=== PATIENT | female | born 1995 | race Caucasian/White ===

== ENCOUNTER 2016-11-14 16:14 | Emergency (ER) | payer BC ==
[~2016-11-14] VITALS: Ht 170.2 cm; Wt 81.6 kg
[2016-11-14 16:22] VITALS: BP 125/85; PULSE 92; RESP 16; TEMP 97.6; O2SAT 97
[2016-11-14 17:18] LABS: BILIRUBIN,URINE NEGATIVE (NEGATIVE); BLOOD, URINE NEGATIVE (NEGATIVE); CLARITY/URINE CLEAR (CLEAR); COLOR,URINE YELLOW (YELLOW); GLUCOSE,URINE NEGATIVE (NEGATIVE); KETONES,URINE NEGATIVE (NEGATIVE); LEUKOCYTE ESTERASE ,URINE NEGATIVE (NEGATIVE); NITRITE, URINE NEGATIVE (NEGATIVE); PROTEIN URINE NEGATIVE (NEGATIVE); UROBILINOGEN,URINE 0.2 (0.2-1.0)
[2016-11-14] MEDS ORDERED: NACL 0.9% 1,000 ML IV ONE (17:30)
[2016-11-14] MEDS ORDERED: KETOROLAC TROMETHAMINE 30 MG VIAL IVP ONE (17:30)
[2016-11-14] MEDS ORDERED: METOCLOPRAMIDE HCL 10 MG/2 ML VIAL IVP ONE (17:30)
[2016-11-14 17:35] LABS: BASOPHILS % (AUTO) 0.5 % (0.0-2.0); EOSINOPHILS % (AUTO) 0.4 % (0.0-4.0); HEMATOCRIT 45.2 % (36-48); HEMOGLOBIN 14.9 g/dL (12.0-16.0); LYMPHOCYTES # (AUTO) 1.5 K/uL (1.0-5.5); MEAN CORPUSCULAR HEMOGLOBIN 30 pg (27-31); MEAN CORPUSCULAR HGB CONC 33 % (32-36); MEAN CORPUSCULAR VOLUME 91 fL (79.0-98.0); MONOCYTES # (AUTO) 0.4 K/uL (0.0-1.0); MONOCYTES % (AUTO) 5.8 % (1.7-9.3); NEUTROPHILS # (AUTO) 4.7 K/uL (1.8-7.7); NEUTROPHILS % (AUTO) 71.3 % (40.0-70.0); PLATELET COUNT (AUTO) 193 K/uL (130-430); RED BLOOD CELL COUNT(AUTO) 4.97 MIL/uL (4.2-6.2); RED CELL DISTRIBUTION WIDTH 12.9 % (9.0-15.0); WHITE BLOOD COUNT (AUTO) 6.6 K/uL (4.5-11.0)
[2016-11-14 17:45] LABS: CALCIUM 9.5 mg/dL (8.4-11.0); CREATININE 0.72 mg/dL (0.55-1.30); POTASSIUM 3.9 mmol/L (3.5-5.1)
[2016-11-14 17:50] LABS: ALBUMIN 3.8 g/dL (3.4-4.8); TOTAL BILIRUBIN 0.3 mg/dL (0.0-1.0)
[2016-11-14 18:14] VITALS: BP 120/79; PULSE 84; RESP 16; TEMP 98.1; O2SAT 97
== END 2016-11-14 18:14 | disposition home or self-care (01) ==
LOC: SED 16:14
DX: J06.9 Acute upper respiratory infection, unspecified (principal); R51 Headache
CPT/HCPCS: 36415; 70450; 80053; 81003; 81025; 85025; 86308; 86710; 96361; 96374; 96375; 99285; J1885; J2765; J7030

== ENCOUNTER 2018-08-24 15:47 | Emergency (ER) | payer BC ==
[~2018-08-24] VITALS: Ht 170.2 cm; Wt 82.1 kg
[2018-08-24 15:51] VITALS: BP_SYST 123
[2018-08-24 16:24] VITALS: BP_SYST 123
== END 2018-08-24 16:25 | disposition home or self-care (01) ==
LOC: SED 15:47
DX: N94.0 Mittelschmerz (principal)
CPT/HCPCS: 81002; 81025; 99282

== ENCOUNTER 2018-11-05 11:33 | Emergency (ER) | payer BC ==
[~2018-11-05] VITALS: Ht 172.7 cm; Wt 79.4 kg
[2018-11-05 11:40] VITALS: BP_SYST 107
[2018-11-05] MEDS ORDERED: NACL 0.9% 1,000 ML IV ONE (12:00)
[2018-11-05 12:16] LABS: HEMATOCRIT 46.2 % (36-48); HEMOGLOBIN 15.2 g/dL (12.0-16.0); MEAN CORPUSCULAR HEMOGLOBIN 30 pg (27-31); MEAN CORPUSCULAR HGB CONC 33 % (32-36); MEAN CORPUSCULAR VOLUME 91 fL (79.0-98.0); PLATELET COUNT (AUTO) 188 K/uL (130-430); RED BLOOD CELL COUNT(AUTO) 5.07 MIL/uL (4.2-6.2); RED CELL DISTRIBUTION WIDTH 14.1 % (9.0-15.0)
[2018-11-05 12:29] LABS: WHITE BLOOD COUNT (AUTO) 11.4 K/uL (4.8-10.8)
[2018-11-05 12:30] LABS: CALCIUM 9.2 mg/dL (8.4-11.0); CREATININE 0.76 mg/dL (0.55-1.30)
[2018-11-05 12:34] LABS: ALBUMIN 3.4 g/dL (3.4-4.8); TOTAL BILIRUBIN 0.6 mg/dL (0.0-1.0)
[2018-11-05] MEDS ORDERED: IOHEXOL 100 ML IV ONE (12:43)
[2018-11-05 13:20] LABS: ATYPICAL LYMPHOCYTES % 40 % (0-0); BAND % (MANUAL) 0 % (0-6); LYMPHOCYTES % (MANUAL) 33 % (20-46); MONOCYTES % (MANUAL) 15 % (0-11)
[2018-11-05 13:28] LABS: BASOPHILS % (MANUAL) 0 % (0-2); EOSINOPHILS % (MANUAL) 0 % (0-7)
[2018-11-05 14:34] VITALS: BP_SYST 110
== END 2018-11-05 14:35 | disposition home or self-care (01) ==
LOC: SED 11:33
DX: R10.9 Unspecified abdominal pain (principal); R74.0 Nonspecific elevation of levels of transaminase and lactic acid dehydrogenase [LDH]
CPT/HCPCS: 36415; 74177; 80053; 81002; 81025; 83690; 85007; 85027; 99284; Q9967; 96360; 96361; J7030